=== PATIENT | female | born 1960 ===

== ENCOUNTER 2025-07-05 07:00 | Day surgery (SDC) | payer OTHER ==
[2025-06-28 12:34] VITALS: BP 142/82
[~2025-07-05] VITALS: Ht 160 cm; Wt 54.4 kg
[~2025-07-05 07:00] MED LIST: ATORVASTATIN CA10 MG PO; PATADAY5 ML; PRESERVISION A1 EAC1 PO; SYSTANE 0.3-0.415 ML; VITAMIN D; [UNRECOGNIZED DRUG - OTHER]
[2025-07-05] MEDS ORDERED: CEFAZOLIN SODIUM 1,000 MG VIAL ONE (07:27)
[2025-07-05] MEDS ORDERED: POVIDONE-IODINE 118 ML BOTT TOP ONE (07:28)
[2025-07-05] MEDS ORDERED: GENTAMICIN SULFATE 40 MG/ML VIAL ONE (07:49)
[2025-07-05] MEDS ORDERED: LIDOCAINE HCL 1%/EPINEPHRINE 20ML VIAL IJ ONE (07:49)
[2025-07-05] MEDS ORDERED: CHLORHEXIDINE GLUCONATE 120 ML BOTTLE TOP ONE (08:03)
[2025-07-05] MEDS ORDERED: MACROBID 100 M100 MG PO (10:17)
[2025-07-05] MEDS ORDERED: TRAM1TAB98 PO (10:17)
== END 2025-07-05 13:15 | disposition home or self-care (01) ==
LOC: CIR.AMB 07:00
PROVIDERS: ATTEND Obstetrics & Gynecology Gynecology
DX: N81.11 Cystocele, midline (principal); Z88.8 Allergy status to other drugs, medicaments and biological substances